=== PATIENT | female | born 2000 | race Caucasian/White ===

== ENCOUNTER 2022-11-14 12:18 | Emergency (ER) | payer OTHER ==
[~2022-11-14] VITALS: Ht 160 cm; Wt 53.5 kg
[2022-11-14 12:18] VITALS: TEMP 98.5
[2022-11-14 13:05] LABS: BASO % 0.2 % (0.0-1.0); HEMOGLOBIN 11.5 g/dl (12.0-15.5); LYMPH # 0.8 10^3/uL (1.5-5.0); LYMPH % 10.2 % (24.0-44.0); MEAN CORPUSCULAR HEMOGLOBIN 29.3 pg (27.0-33.0); MEAN CORPUSCULAR HGB CONC 34.8 g/dl (32.0-36.5); MONO # 0.3 10^3/uL (0.0-0.8); MONO % 3.7 % (2.0-8.0); NEUTROPHILS # 6.9 10^3/uL (1.5-8.5); NEUTROPHILS % 85.7 % (36.0-66.0); PLATELET COUNT, AUTOMATED 260 10^3/uL (150-450); RED BLOOD COUNT 3.93 10^6/uL (4.00-5.40); WHITE BLOOD COUNT 8.1 10^3/uL (4.0-10.0)
[2022-11-14 13:26] LABS: LIPASE 24 U/L (12-53)
[2022-11-14 13:28] LABS: ALBUMIN 4.4 G/DL (3.2-5.2); ALKALINE PHOSPHATASE 51 U/L (46-116); ALT/SGPT < 9 U/L (7.0-40); AST/SGOT < 8 U/L (<34); BILIRUBIN,DIRECT 0.3 MG/DL (<0.4); BLOOD UREA NITROGEN 7 MG/DL (9-23); CALCIUM LEVEL 9.3 MG/DL (8.5-10.1); CARBON DIOXIDE LEVEL 22 MMOL/L (20-31); CHLORIDE LEVEL 103 MMOL/L (98-107); CREATININE FOR GFR 0.49 MG/DL (0.55-1.30); GLUCOSE, FASTING 75 MG/DL (60-100); SODIUM LEVEL 137 MMOL/L (136-145); TOTAL PROTEIN 7.1 G/DL (5.7-8.2)
[2022-11-14 13:41] LABS: HCG, SERUM QUANTITATIVE 90569.5 MIU/ML (<4.2)
[2022-11-14] MEDS ORDERED: ONDANSETRON 4MG 2ML VIAL IV ONE (14:20)
[2022-11-14] MEDS ORDERED: NS 1,000 ML IV ONE (14:20)
[2022-11-14] MEDS ORDERED: METOCLOPRAMIDE INJ 10MG/2ML VIAL IV ONE (15:30)
[2022-11-14] MEDS ORDERED: REGL10TA6 PO (17:31)
[2022-11-14 17:39] VITALS: BP 119/67; O2SAT 100
== END 2022-11-14 17:47 | disposition home or self-care (01) ==
LOC: EDBD 12:18 → M ED 12:18
DX: O46.91 Antepartum hemorrhage, unspecified, first trimester (principal); O21.9 Vomiting of pregnancy, unspecified; Z3A.09 9 weeks gestation of pregnancy; Z79.899 Other long term (current) drug therapy
CPT/HCPCS: 36415; 76801; 80048; 80076; 81001; 83690; 84702; 85025; 86850; 86900; 86901; 87088; 93976; 96361; 96374; 99284; J2765

== ENCOUNTER 2022-11-14 23:02 | Emergency (ER) | payer OTHER ==
[~2022-11-14] VITALS: Ht 160 cm; Wt 53.5 kg
[~2022-11-14 23:02] MED LIST: REGL10TA6 PO
[2022-11-14 23:05] VITALS: BP 119/65; TEMP 98.7; O2SAT 93
== END 2022-11-15 00:28 | disposition left against medical advice (07) ==
LOC: M ED 23:02
DX: Z53.21 Procedure and treatment not carried out due to patient leaving prior to being seen by health care provider (principal)

== ENCOUNTER → 2022-11-29 | Outpatient (CLI) | payer OTHER ==
[2022-11-29 17:32] LABS: HEMATOCRIT 32.1 % (36.0-47.0); HEMOGLOBIN 11.1 g/dl (12.0-15.5); MEAN CORPUSCULAR HEMOGLOBIN 29.8 pg (27.0-33.0); MEAN CORPUSCULAR HGB CONC 34.6 g/dl (32.0-36.5); MEAN CORPUSCULAR VOLUME 86.1 fl (80.0-96.0); PLATELET COUNT, AUTOMATED 258 10^3/uL (150-450); RED BLOOD COUNT 3.73 10^6/uL (4.00-5.40); WHITE BLOOD COUNT 7.5 10^3/uL (4.0-10.0)
[2022-11-29 18:29] LABS: HIV 1&2 SCREEN NEGATIVE (NEGATIVE)
[2022-11-29 18:34] LABS: HEPATITIS C VIRUS ABY INDEX 0.12 INDEX (<0.8)
[2022-11-29 18:51] LABS: GC DNA AMPLIFICATION NEGATIVE (NEGATIVE)
== END ==
LOC: M PLALAB 15:20
PROVIDERS: ATTEND Advanced Practice Midwife
DX: Z34.01 Encounter for supervision of normal first pregnancy, first trimester (principal)
CPT/HCPCS: 36415; 76801; 85027; 86762; 86780; 86803; 86850; 86900; 86901; 87086; 87340; 87389; 87810; 87850; G0463

== ENCOUNTER → 2022-12-06 | Outpatient (CLI) | payer OTHER | LOC: M PLALAB 11:34 | PROVIDERS: ATTEND Specialist | DX: Z34.81 Encounter for supervision of other normal pregnancy, first trimester (principal) ==

== ENCOUNTER → 2023-02-05 | Outpatient (CLI) | payer OTHER | LOC: M WHC 13:29 | PROVIDERS: ATTEND Specialist | DX: O32.1XX0 Maternal care for breech presentation, not applicable or unspecified (principal); Z3A.20 20 weeks gestation of pregnancy ==

== ENCOUNTER → 2023-03-17 | Outpatient (CLI) | payer OTHER ==
[2023-03-17 14:10] LABS: HEMATOCRIT 28.4 % (36.0-47.0); HEMOGLOBIN 10.1 g/dl (12.0-15.5); MEAN CORPUSCULAR HGB CONC 35.6 g/dl (32.0-36.5); MEAN CORPUSCULAR VOLUME 89.9 fl (80.0-96.0); PLATELET COUNT, AUTOMATED 238 10^3/uL (150-450); RED BLOOD COUNT 3.16 10^6/uL (4.00-5.40); WHITE BLOOD COUNT 7.6 10^3/uL (4.0-10.0)
== END ==
LOC: M PLALAB 10:31
PROVIDERS: ATTEND Advanced Practice Midwife
DX: Z34.02 Encounter for supervision of normal first pregnancy, second trimester (principal)

== ENCOUNTER 2023-04-23 01:56 | Emergency (ER) | payer OTHER ==
[~2023-04-23] VITALS: Ht 160 cm; Wt 61.3 kg
[2023-04-23 01:56] VITALS: BP 162/98; TEMP 97.9; O2SAT 100
[2023-04-23] MEDS ORDERED: BACI500O8 TOP (18:42)
== END 2023-04-23 03:10 | disposition left against medical advice (07) ==
LOC: M ED 01:56
DX: Z53.21 Procedure and treatment not carried out due to patient leaving prior to being seen by health care provider (principal)

== ENCOUNTER 2023-04-23 16:24 | Emergency (ER) | payer OTHER ==
[~2023-04-23] VITALS: Ht 160 cm; Wt 61.7 kg
[2023-04-23 16:25] VITALS: BP 130/81; TEMP 97.8; O2SAT 98
[2023-04-23] MEDS ORDERED: BACITRACIN OINTMENT 30GM TUBE TOP STA (18:03)
[2023-04-23] MEDS ORDERED: BACI500O8 TOP (18:42)
== END 2023-04-23 18:51 | disposition home or self-care (01) ==
LOC: M ED 16:24
DX: O26.893 Other specified pregnancy related conditions, third trimester (principal); T23.102A Burn of first degree of left hand, unspecified site, initial encounter; T23.202A Burn of second degree of left hand, unspecified site, initial encounter; X12.XXXA Contact with other hot fluids, initial encounter; Y92.9 Unspecified place or not applicable; Y93.89 Activity, other specified; Y99.1 Military activity; Z3A.32 32 weeks gestation of pregnancy; Z79.2 Long term (current) use of antibiotics; T31.0 Burns involving less than 10% of body surface

== ENCOUNTER → 2023-05-23 | Outpatient (CLI) | payer OTHER ==
[~2023-05-23] MED LIST changes: +BACI500O8 TOP
== END ==
LOC: M WHC 07:58
PROVIDERS: ATTEND Advanced Practice Midwife
DX: O26.843 Uterine size-date discrepancy, third trimester (principal); O32.1XX0 Maternal care for breech presentation, not applicable or unspecified; Z3A.36 36 weeks gestation of pregnancy

== ENCOUNTER → 2023-05-23 | Outpatient (CLI) | payer OTHER ==
[2023-05-23 15:33] LABS: BASO % 0.4 % (0.0-1.0); EOS % 0.3 % (0.0-3.0); HEMATOCRIT 30.5 % (36.0-47.0); HEMOGLOBIN 10.6 g/dl (12.0-15.5); LYMPH # 1.8 10^3/uL (1.5-5.0); LYMPH % 23.5 % (24.0-44.0); MEAN CORPUSCULAR HEMOGLOBIN 29.8 pg (27.0-33.0); MEAN CORPUSCULAR HGB CONC 34.8 g/dl (32.0-36.5); MEAN CORPUSCULAR VOLUME 85.7 fl (80.0-96.0); MONO # 0.6 10^3/uL (0.0-0.8); MONO % 7.3 % (2.0-8.0); NEUTROPHILS # 5.2 10^3/uL (1.5-8.5); NEUTROPHILS % 67.8 % (36.0-66.0); PLATELET COUNT, AUTOMATED 192 10^3/uL (150-450); RED BLOOD COUNT 3.56 10^6/uL (4.00-5.40); WHITE BLOOD COUNT 7.7 10^3/uL (4.0-10.0)
[2023-05-23 15:50] LABS: TOTAL PROTEIN,RANDOM URINE 73.4 MG/DL (0.0-14.0)
[2023-05-23 15:55] LABS: CREATININE,RANDOM URINE 95.2 MG/DL
[2023-05-23 15:56] LABS: ALBUMIN 2.7 G/DL (3.2-5.2); ALKALINE PHOSPHATASE 197 U/L (46-116); ALT/SGPT 9 U/L (7.0-40); AST/SGOT 16 U/L (<34); BILIRUBIN,TOTAL 0.3 MG/DL (0.3-1.2); BLOOD UREA NITROGEN 12 MG/DL (9-23); CALCIUM LEVEL 8.5 MG/DL (8.5-10.1); CARBON DIOXIDE LEVEL 23 MMOL/L (20-31); CHLORIDE LEVEL 107 MMOL/L (98-107); GLOMERULAR FILTRATION RATE > 60.0 (>60); GLUCOSE, FASTING 72 MG/DL (60-100); POTASSIUM SERUM 4.4 MMOL/L (3.5-5.1); SODIUM LEVEL 136 MMOL/L (136-145)
[2023-05-23 16:11] LABS: SICKLE CELL SCREEN POSITIVE (NEGATIVE)
== END ==
LOC: M LAB 14:45
PROVIDERS: ATTEND Advanced Practice Midwife
DX: O26.843 Uterine size-date discrepancy, third trimester (principal); R03.0 Elevated blood-pressure reading, without diagnosis of hypertension; O32.1XX0 Maternal care for breech presentation, not applicable or unspecified; Z3A.36 36 weeks gestation of pregnancy; O26.893 Other specified pregnancy related conditions, third trimester

== ENCOUNTER 2023-05-30 06:02 | Inpatient (IN) | payer OTHER ==
[2023-05-30] VITALS (9 sets, daily range): BP systolic 144–174; BP diastolic 72–105; TEMP 97.5–98.2; O2SAT 97–100
[~2023-05-30] VITALS: Ht 160 cm; Wt 59.8 kg
[~2023-05-30 06:02] MED LIST changes: +FERR325T82 PO; +PREN200C PO
[2023-05-30] MEDS: LR 1,000 ML IV SCH ×2 (06:20→15:35)
[2023-05-30] MEDS: LR 1,000 ML IV ONE (06:46)
[2023-05-30 07:07] LABS: HEMATOCRIT 31.5 % (36.0-47.0); HEMOGLOBIN 10.9 g/dl (12.0-15.5); MEAN CORPUSCULAR HEMOGLOBIN 29.1 pg (27.0-33.0); MEAN CORPUSCULAR HGB CONC 34.6 g/dl (32.0-36.5); MEAN CORPUSCULAR VOLUME 84.2 fl (80.0-96.0); PLATELET COUNT, AUTOMATED 219 10^3/uL (150-450); RED BLOOD COUNT 3.74 10^6/uL (4.00-5.40); WHITE BLOOD COUNT 6.3 10^3/uL (4.0-10.0)
[2023-05-30] MEDS ORDERED: LIDOCAINE 1% MDV 20ML VIAL INFIL PRN (07:55)
[2023-05-30] MEDS: BICITRA 30ML SOLN UDC PO ONE (07:55)
[2023-05-30] MEDS ORDERED: METHYLERGONOVINE MALEATE 0.2MG/ML 1ML VIAL IM PRN ×2 (07:55→10:40)
[2023-05-30] MEDS ORDERED: OXYTOCIN DRIP 30 UNITS in IV 1 EA IV PRN (07:55)
[2023-05-30] MEDS ORDERED: LIDOCAINE 2% W/EPINEPHRINE 20ML VIAL **PRES FREE As Ordered ONE (07:58)
[2023-05-30] MEDS: TERBUTALINE SULFATE 1 MG/ML 1ML VIAL SC ONE (08:36)
[2023-05-30] MEDS: ceFAZolin SOD 2 GM in IV 1 EA IV ONE (08:36)
[2023-05-30] MEDS ORDERED: ACETAMINOPHEN 1000MG 100ML IV BAG As Ordered ONE (09:31)
[2023-05-30] MEDS ORDERED: OXYTOCIN 30UNITS IN 0.9% NaCl 500ML IV BAG As Ordered ONE (09:31)
[2023-05-30] MEDS ORDERED: MORPHINE PRES-FREE INJ 10 MG/10 ML VIAL As Ordered ONE (09:41)
[2023-05-30] MEDS ORDERED: ONDANSETRON 4MG 2ML VIAL As Ordered ONE (09:45)
[2023-05-30] MEDS ORDERED: KETOROLAC 60MG 2ML VIAL As Ordered ONE (09:45)
[2023-05-30 10:11] LABS: CORD GAS ABE V -4.9; CORD GAS HCO3 V 22.4 MMOL/L; CORD GAS O2 SAT V 60.7 %; CORD GAS PCO2 V 49.6 mmHg; CORD GAS PH V 7.273 UNITS; CORD GAS PO2 V 26.9 mmHg; CORD GAS SBC V 19.5 MMOL/L; CORD GAS TCO2 V 23.9 MMOL/L
[2023-05-30 10:14] LABS: CORD GAS ABE A -4.6; CORD GAS HCO3 A 23.9 MMOL/L; CORD GAS O2 SAT A 17.6 %; CORD GAS PCO2 A 57.1 mmHg; CORD GAS PH A 7.24 UNITS; CORD GAS PO2 A 12.1 mmHg; CORD GAS SBC A 18.7 MMOL/L; CORD GAS TCO2 A 25.7 MMOL/L
[2023-05-30] MEDS ORDERED: SIMETHICONE 80MG CHEW TAB PO PRN (10:40)
[2023-05-30] MEDS: ACETAMINOPHEN 500 MG TAB PO SCH (10:40)
[2023-05-30] MEDS ORDERED: METOCLOPRAMIDE INJ 10MG/2ML VIAL IV PRN ×2 (10:40→12:30)
[2023-05-30] MEDS ORDERED: RHOGAM 300MCG (1500IU) INJ IM SCH (10:40)
[2023-05-30] MEDS ORDERED: PROMETHAZINE 25 MG TAB PO PRN (10:40)
[2023-05-30] MEDS: OXYTOCIN DRIP 30 UNITS in IV 1 EA IV SCH (10:46)
[2023-05-30] MEDS ORDERED: TRANEXAMIC ACID 100 MG/ML 10ML VIAL As Ordered ONE (11:51)
[2023-05-30] MEDS: TRANEXAMIC ACID INJection 1,000 MG in NS 100 ML IV PRN (12:02)
[2023-05-30] MEDS ORDERED: CARBOPROST TROMETHAMINE 250 MCG/ML AMP As Ordered ONE (12:18)
[2023-05-30] MEDS ORDERED: NALOXONE INJ 0.4MG/1ML VIAL IV PRN ×2 (12:30)
[2023-05-30] MEDS ORDERED: **NOTE PATIENT COMMENT** MISC XX SCH (12:30)
[2023-05-30] MEDS: SLF 3 ML SYR IV SCH (12:30)
[2023-05-30] MEDS: CARBOPROST TROMETHAMINE 250 MCG/ML AMP IM PRN (12:38)
[2023-05-30] MEDS ORDERED: MORPHINE 2 MG/ML 1ML VIAL IV ONE (12:40)
[2023-05-30] MEDS ORDERED: MORPHINE 10 MG/ML 1ML VIAL As Ordered ONE (12:41)
[2023-05-30] MEDS: MORPHINE 10 MG/ML 1ML VIAL IV ONE (13:16)
[2023-05-30 13:37] LABS: HEMOGLOBIN 8.7 g/dl (12.0-15.5); MEAN CORPUSCULAR HEMOGLOBIN 29.8 pg (27.0-33.0); MEAN CORPUSCULAR HGB CONC 34.8 g/dl (32.0-36.5); MEAN CORPUSCULAR VOLUME 85.6 fl (80.0-96.0); PLATELET COUNT, AUTOMATED 169 10^3/uL (150-450); RED BLOOD COUNT 2.92 10^6/uL (4.00-5.40); WHITE BLOOD COUNT 17.9 10^3/uL (4.0-10.0)
[2023-05-30 13:43] LABS: INR 1.06; PROTHROMBIN TIME 13.5 SECONDS (12.5-14.5)
[2023-05-30] MEDS: LABETALOL 200 MG TAB PO STA (14:20)
[2023-05-30] MEDS: KETOROLAC 30 MG/ML 1ML VIAL IV SCH (16:27)
[2023-05-30] MEDS: diphenhydrAMINE 50MG/ML VIAL IV PRN (17:40)
[2023-05-30 18:00] LABS: HEMATOCRIT 25.1 % (36.0-47.0); HEMOGLOBIN 8.8 g/dl (12.0-15.5); MEAN CORPUSCULAR HEMOGLOBIN 30.2 pg (27.0-33.0); MEAN CORPUSCULAR HGB CONC 35.1 g/dl (32.0-36.5); MEAN CORPUSCULAR VOLUME 86.3 fl (80.0-96.0); PLATELET COUNT, AUTOMATED 143 10^3/uL (150-450); RED BLOOD COUNT 2.91 10^6/uL (4.00-5.40); WHITE BLOOD COUNT 13.8 10^3/uL (4.0-10.0)
[2023-05-30 18:14] LABS: ALKALINE PHOSPHATASE 152 U/L (46-116); ALT/SGPT < 9 U/L (7.0-40); AST/SGOT 21 U/L (<34); BILIRUBIN,TOTAL 0.5 MG/DL (0.3-1.2); BLOOD UREA NITROGEN 8 MG/DL (9-23); CALCIUM LEVEL 7.8 MG/DL (8.5-10.1); CARBON DIOXIDE LEVEL 23 MMOL/L (20-31); CHLORIDE LEVEL 110 MMOL/L (98-107); CREATININE FOR GFR 0.68 MG/DL (0.55-1.30); GLOMERULAR FILTRATION RATE > 60.0 (>60); GLUCOSE, FASTING 58 MG/DL (60-100); POTASSIUM SERUM 4.1 MMOL/L (3.5-5.1); SODIUM LEVEL 138 MMOL/L (136-145); TOTAL PROTEIN 4.5 G/DL (5.7-8.2)
[2023-05-30] MEDS: DOCUSATE SODIUM 100MG CAPSULE PO SCH (21:13)
[2023-05-30] MEDS: LABETALOL 200 MG TAB PO SCH (22:08)
[2023-05-31 02:45] VITALS: BP 123/70; O2SAT 98
[2023-05-31 06:01] LABS: HEMATOCRIT 23.6 % (36.0-47.0); HEMOGLOBIN 8.3 g/dl (12.0-15.5); MEAN CORPUSCULAR HEMOGLOBIN 30.1 pg (27.0-33.0); MEAN CORPUSCULAR HGB CONC 35.2 g/dl (32.0-36.5); MEAN CORPUSCULAR VOLUME 85.5 fl (80.0-96.0); PLATELET COUNT, AUTOMATED 125 10^3/uL (150-450); RED BLOOD COUNT 2.76 10^6/uL (4.00-5.40); WHITE BLOOD COUNT 8.2 10^3/uL (4.0-10.0)
[2023-05-31 06:43] VITALS: BP 118/83; O2SAT 98
[2023-05-31] MEDS: PRENATAL VITAMINS CHEWABLE TABLET PO SCH (07:39)
[2023-05-31 10:00] VITALS: BP 131/78; O2SAT 98
[2023-05-31] MEDS: oxyCODONE 5MG TAB PO PRN (10:48)
[2023-05-31] MEDS: INFLUENZA QUADRIVALENT PF VACCINE 0.5ML SYRINGE IM.IMMUN ONE (11:12)
[2023-05-31] MEDS: IBUPROFEN 800 MG TAB PO SCH (12:09)
[2023-05-31 14:00] VITALS: BP 137/93; O2SAT 98
[2023-05-31 18:00] VITALS: BP 120/77; O2SAT 99
[2023-05-31 22:00] VITALS: BP 124/64; O2SAT 97
[2023-06-01 02:00] VITALS: BP 131/81; O2SAT 96
[2023-06-01 06:00] VITALS: BP 143/92; O2SAT 95
[2023-06-01] MEDS: oxyCODONE 5MG TAB PO PRN (08:37)
[2023-06-01] MEDS: MEASLES,MUMPS,RUBELLA VACCINE INJ (MMR-II) SC.IMMUN ONE (09:00)
[2023-06-01] MEDS ORDERED: ACET-683 PO (09:04)
[2023-06-01] MEDS ORDERED: IBUP80TA PO (09:04)
[2023-06-01] MEDS ORDERED: OXYC-517 PO (09:04)
[2023-06-01] MEDS ORDERED: COLA100C5 PO (09:04)
[2023-06-01] MEDS ORDERED: LABE20TAB PO (09:04)
[2023-06-01] MEDS ORDERED: PRENCHW PO (09:04)
[2023-06-01 09:46] VITALS: BP 143/92; TEMP 98.7; O2SAT 95
[2023-06-01 10:00] VITALS: BP 134/81; O2SAT 98
[2023-06-01 13:31] VITALS: BP 148/82
[2023-06-01 14:00] VITALS: BP 148/82; O2SAT 92
== END 2023-06-01 16:00 | disposition home or self-care (01) | DRG 773 ==
LOC: M LDI 06:02 → M OBS 15:00
PROVIDERS: ADMIT Obstetrics & Gynecology; ATTEND Obstetrics & Gynecology
PROC: 30233N1 Transfusion of Nonautologous Red Blood Cells into Peripheral Vein, Percutaneous Approach (ICD-10-PCS; 2023-05-30)
PROC: 10D00Z1 Extraction of Products of Conception, Low, Open Approach (ICD-10-PCS; principal; 2023-05-30 08:00)
DX: O14.04 Mild to moderate pre-eclampsia, complicating childbirth (principal); O32.1XX0 Maternal care for breech presentation, not applicable or unspecified; Z37.0 Single live birth; Z3A.37 37 weeks gestation of pregnancy; O99.824 Streptococcus B carrier state complicating childbirth; O72.0 Third-stage hemorrhage

== ENCOUNTER 2024-01-06 18:48 | Emergency (ER) | payer OTHER ==
[~2024-01-06] VITALS: Ht 160 cm; Wt 52.8 kg
[~2024-01-06 18:48] MED LIST changes: +ACET-683 PO; +ACET1TAB55 PO; +COLA100C5 PO; +DICL250C72 PO; +IBUP80TA PO; +LABE20TAB PO; +OXYC-517 PO; +PRENCHW PO
[2024-01-06 18:50] VITALS: BP 125/85; TEMP 97.3; O2SAT 100
== END 2024-01-06 21:36 | disposition left against medical advice (07) ==
LOC: M ED 18:48
DX: Z53.21 Procedure and treatment not carried out due to patient leaving prior to being seen by health care provider (principal)